=== PATIENT | female | born 1955 | race Asian ===

== ENCOUNTER 2018-06-20 19:12 | Emergency (ER) | payer OTHER ==
[~2018-06-20] VITALS: Ht 162.6 cm; Wt 94.8 kg
[~2018-06-20 19:12] MED LIST: SINGULAIR10 MG PO
[2018-06-20 19:23] VITALS: TEMP 98.1
[2018-06-20] MEDS ORDERED: ALBU90AE13 INH (19:29)
[2018-06-20 23:00] VITALS: BP 193/86
== END 2018-06-20 23:00 | disposition home or self-care (01) ==
LOC: ED 19:12
DX: M54.5 Low back pain (principal); M47.897 Other spondylosis, lumbosacral region
CPT/HCPCS: 81000; 96372; 99283; J1885